=== PATIENT | female | born 1985 | race African-American/Black ===

== ENCOUNTER 2021-02-03 06:01 | Emergency (ER) | payer OTHER ==
[2021-02-03] MEDS ORDERED: MEDROL 4MG DOSEP4 MG PO (06:46)
[2021-02-03] MEDS ORDERED: PEPCID AC20 MG PO (06:46)
[2021-02-03] MEDS ORDERED: ATARAX25 MG PO (06:46)
== END 2021-02-03 07:10 | disposition home or self-care (01) ==
LOC: FER 06:01
DX: L50.1 Idiopathic urticaria (principal)
CPT/HCPCS: 99282; J7512